=== PATIENT | male | born 1985 | race Caucasian/White ===

== ENCOUNTER 2022-04-27 14:38 | Emergency (ER) | payer MEDICAID ==
[~2022-04-27] VITALS: Ht 182.9 cm; Wt 72.6 kg
--- NOTE | 2022-04-27 15:30 | NUR ---
Pt arrived with c/o cellulitis of the left lower extremity with redness, swelling and pain of 7/10. Pt is afebrile, AOx4.
[2022-04-27 15:48] LABS: HEMATOCRIT 32.4 % (36.7-47.1); MEAN CORPUSCULAR HEMOGLOBIN 28.1 uug (23.8-33.4); MEAN CORPUSCULAR VOLUME 86.5 fL (73.0-96.2); PLATELET COUNT (AUTO) 525 K/uL (152-348)
[2022-04-27 15:50] LABS: CREATININE 0.8 mg/dL (0.6-1.3); POTASSIUM 3.3 mmol/L (3.5-5.1)
--- NOTE | 2022-04-27 16:00 | NUR ---
Seen by [facility] for MSE.
[2022-04-27] MEDS ORDERED: COMP-12 MC (17:06)
[2022-04-27] MEDS ORDERED: COMP-44 MC (17:06)
--- NOTE | 2022-04-27 17:27 | NUR ---
Patient discharged to home in stable condition. Written and verbal after care instructions given. Patient verbalizes understanding of instructions. Stressed follow up or return to ER for worsening s/s.
== END 2022-04-27 17:27 | disposition home or self-care (01) ==
LOC: ER 14:48
DX: I89.0 Lymphedema, not elsewhere classified (principal); M79.605 Pain in left leg; R79.82 Elevated C-reactive protein (CRP); D64.9 Anemia, unspecified; D75.839 Thrombocytosis, unspecified; I87.302 Chronic venous hypertension (idiopathic) without complications of left lower extremity
CPT/HCPCS: 36415; 85025; 85651; 86140; A4663